=== PATIENT | male | born 1960 | race Caucasian/White ===

== ENCOUNTER 2017-06-30 08:47 | Emergency (ER) | payer MEDICARE, MEDICAID ==
[2017-06-30] MEDS ORDERED: Sodium Chloride 0.9% 1,000 ML IV ONE (09:26)
[2017-06-30 09:29] VITALS: BP 140/89
[2017-06-30 10:22] LABS: CHLORIDE,CL 104 mmol/L (98-110); SODIUM,NA 136 mmol/L (136-146)
--- NOTE | 2017-06-30 10:43 | EDM.PDOC ---
ED HPI GENERAL MEDICAL PROBLEM - General Chief Complaint: Abdominal Pain Stated Complaint: RIGHT SIDE ABDOMINAL PAIN Time Seen by Provider: 06/30/17 09:26 Source of Information: Reports: Patient History Limitations: Reports: No Limitations - History of Present Illness INITIAL COMMENTS - FREE TEXT/NARRATIVE: History of present illness: []Patient has had 2 weeks of intermittent right lower abdominal pain. He's worked up by Dr. Al for this in the past 2 weeks including an MRI evaluating his hernia with mesh which appeared normal. He denies any fevers, chills, vomiting or diarrhea and states he does have some nausea with the pain. Review of systems: As per history of present illness and below otherwise all systems reviewed and negative. Past medical history: As per history of present illness and as reviewed below otherwise noncontributory. Surgical history: As per history of present illness and as reviewed below otherwise noncontributory. Social history: No reported history of drug or alcohol abuse. Family history: As per history of present illness and as reviewed below otherwise noncontributory. Physical exam: General: Well developed, well nourished in NAD HEENT: Atraumatic, normocephalic, pupils reactive, negative for conjunctival pallor or scleral icterus, mucous membranes moist, throat clear, neck supple, nontender, trachea midline. Lungs: Clear to auscultation, breath sounds equal bilaterally, chest nontender. Heart: S1S2, regular, negative for clicks, rubs, or JVD. Abdomen: Soft, nondistended, tender right lower quadrant without rebound or guarding. Negative for masses or hepatosplenomegaly. Negative for costovertebral tenderness. Pelvis: Stable nontender. Genitourinary: Deferred. Rectal: Deferred. Extremities: Atraumatic, negative for cords or calf pain. Neurovascular unremarkable. Neuro: Awake, alert, oriented. Cranial nerves II through XII unremarkable. Cerebellum unremarkable. Motor and sensory unremarkable throughout. Exam nonfocal. Diagnostics: []Lab work which is normal Therapeutics: []IV hydrated with improvement Impression: []Abdominal pain NOS Plan: []Motrin for pain follow-up with primary care return if symptoms worsen Definitive disposition and diagnosis as appropriate pending reevaluation and review of above. 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 - Past Surgical History Cardiovascular Surgical History: Reports: None Other Musculoskeletal Surgeries/Procedures:: back surgery for 2 herniated discs Social & Family History - Family History Family Medical History: Noncontributory - Tobacco Use Smoking Status *Q: Former Smoker Used Tobacco, but Quit: Yes Month Tobacco Last Used: years ago - Caffeine Use Caffeine Use: Reports: Coffee Caffeine Use Comment: 2drinks/day - Recreational Drug Use Recreational Drug Use: No ED ROS GENERAL - Review of Systems Review Of Systems: See Below (See history of present illness) ED EXAM, GI/ABD - Physical Exam Exam: See Below (See history of present illness) Course - Vital Signs Last Recorded V/S: Last Vital Signs Temp 36.6 C 06/30/17 09:25 Pulse 88 06/30/17 09:25 Resp 19 06/30/17 09:25 BP 140/89 06/30/17 09:25 Pulse Ox 97 06/30/17 09:25 - Orders/Labs/Meds Labs: Laboratory Tests 06/30/17 06/30/17 06/30/17 Range/Units 09:35 09:35 09:40 WBC 8.85 (4.0-11.0) K/uL RBC 5.24 (4.50-5.90) M/uL Hgb 15.8 (13.0-17.0) g/dL Hct 44.6 (38.0-50.0) % MCV 85.1 (80.0-98.0) fL MCH 30.2 (27.0-32.0) pg MCHC 35.4 (31.0-37.0) g/dL RDW Std Deviation 40.3 (28.0-62.0) fl RDW Coeff of Robert 13 (11.0-15.0) % Plt Count 244 (150-400) K/uL MPV 9.70 (7.40-12.00) fL Neut % (Auto) 57.0 (48.0-80.0) % Lymph % (Auto) 29.8 (16.0-40.0) % Stark % (Auto) 10.2 (0.0-15.0) % Eos % (Auto) 2.3 (0.0-7.0) % Baso % (Auto) 0.7 (0.0-1.5) % Neut # (Auto) 5.1 (1.4-5.7) K/uL Lymph # (Auto) 2.6 H (0.6-2.4) K/uL Stark # (Auto) 0.9 H (0.0-0.8) K/uL Eos # (Auto) 0.2 (0.0-0.7) K/uL Baso # (Auto) 0.1 (0.0-0.1) K/uL Nucleated RBC % 0.0 /100WBC Nucleated RBCs # 0 K/uL Sodium 136 (136-146) mmol/L Potassium 4.1 (3.5-5.1) mmol/L Chloride 104 (98-110) mmol/L Carbon Dioxide 23 (21-31) mmol/L BUN 17 (6.0-23.0) mg/dL Creatinine 1.1 (0.6-1.5) mg/dL Est Cr Clr Drug Dosing 79.86 mL/min Estimated GFR (MDRD) > 60.0 ml/min Glucose 111 H (60-110) mg/dL Calcium 10.7 (8.8-10.8) mg/dL Total Bilirubin 0.7 (0.1-1.5) mg/dL AST 25 (5-40) IU/L ALT 40 (8-54) IU/L Alkaline Phosphatase 97 (40-150) Total Protein 7.5 (6.0-8.0) g/dL Albumin 4.6 (3.5-5.0) g/dL Globulin 2.9 (2.0-3.5) g/dL Albumin/Globulin Ratio 1.6 (1.3-2.8) Lipase 38 (7-80) U/L Urine Color YELLOW Urine Appearance CLEAR Urine pH 5.5 (5.0-8.0) Ur Specific [place] 1.020 (1.001-1.035) Urine Protein NEGATIVE (NEGATIVE) mg/dL Urine Glucose (UA) NEGATIVE (NEGATIVE) mg/dL Urine Ketones NEGATIVE (NEGATIVE) mg/dL Urine Occult Blood NEGATIVE (NEGATIVE) Urine Nitrite NEGATIVE (NEGATIVE) Urine Bilirubin NEGATIVE (NEGATIVE) Urine Urobilinogen 0.2 (<2.0) EU/dL Ur Leukocyte Esterase NEGATIVE (NEGATIVE) Urine RBC NONE SEEN (0-2/HPF) Urine WBC NONE SEEN (0-5/HPF) Ur Epithelial Cells RARE (NONE-FEW) Urine Bacteria RARE (NEGATIVE) Meds: Medications Discontinued Medications Generic Name Dose Route Start Last Admin Trade Name Bay PRN Reason Stop Dose Admin Sodium Chloride 1,000 mls @ 999 mls/hr 06/30/17 09:26 06/30/17 09:49 Normal Saline IV 06/30/17 10:26 999 mls/hr .Bolus ONE Administration Departure - Departure Time of Disposition: 10:41 Disposition: Home, Self-Care 01 Condition: Good Clinical Impression: Abdominal pain Qualifiers: Abdominal location: right lower quadrant Qualified Code(s): R10.31 - Right lower quadrant pain - Discharge Information Referrals: Jace Al DO [Primary Care Provider] - Additional Instructions: The following information is given to patients seen in the emergency department who are being discharged to home. This information is to outline your options for follow-up care. We provide all patients seen in our emergency department with a follow-up referral. The need for follow-up, as well as the timing and circumstances, are variable depending upon the specifics of your emergency department visit. If you don't have a primary care physician on staff, we will provide you with a referral. We always advise you to contact your personal physician following an emergency department visit to inform them of the circumstance of the visit and for follow-up with them and/or the need for any referrals to a consulting specialist. The emergency department will also refer you to a specialist when appropriate. This referral assures that you have the opportunity for follow-up care with a specialist. All of these measure are taken in an effort to provide you with optimal care, which includes your follow-up. Under all circumstances we always encourage you to contact your private physician who remains a resource for coordinating your care. When calling for follow-up care, please make the office aware that this follow-up is from your recent emergency room visit. If for any reason you are refused follow-up, please contact the [facility] Emergency Department at and asked to speak to the emergency department charge nurse. [facility] [address] [place] [id number]
== END 2017-06-30 10:55 | disposition home or self-care (01) ==
LOC: MW.ED 08:47
DX: R10.31 Right lower quadrant pain (principal); I10 Essential (primary) hypertension; Z87.891 Personal history of nicotine dependence; Z98.890 Other specified postprocedural states; Z87.442 Personal history of urinary calculi
CPT/HCPCS: 36415; 80053; 81001; 83690; 85025; 96360; 99284; J7040; 99283

== ENCOUNTER 2018-11-19 15:10 | Emergency (ER) | payer MEDICARE, MEDICAID ==
--- NOTE | 2018-11-19 15:43 | EDM.PDOC ---
ED HPI GENERAL MEDICAL PROBLEM - General Chief Complaint: Skin Complaint Stated Complaint: POSSIBLE SHINGLES Time Seen by Provider: 11/19/18 15:11 Source of Information: Reports: Patient History Limitations: Reports: No Limitations - History of Present Illness INITIAL COMMENTS - FREE TEXT/NARRATIVE: History of present illness: []Patient's had 2 days of painful rash on his left buttock going down the left posterior thigh. Denies any fevers, chills or any other rash. Review of systems: As per history of present illness and below otherwise all systems reviewed and negative. Past medical history: As per history of present illness and as reviewed below otherwise noncontributory. Surgical history: As per history of present illness and as reviewed below otherwise noncontributory. Social history: No reported history of drug or alcohol abuse. Family history: As per history of present illness and as reviewed below otherwise noncontributory. Physical exam: General: Well developed, well nourished in NAD HEENT: Atraumatic, normocephalic, pupils reactive, negative for conjunctival pallor or scleral icterus, mucous membranes moist, throat clear, neck supple, nontender, trachea midline. Lungs: Clear to auscultation, breath sounds equal bilaterally, chest nontender. Heart: S1S2, regular, negative for clicks, rubs, or JVD. Abdomen: NABS, Soft, nondistended, nontender. Negative for masses or hepatosplenomegaly. Negative for costovertebral tenderness. Pelvis: Stable nontender. Genitourinary: Deferred. Rectal: Deferred. Extremities: Atraumatic, negative for cords or calf pain. Neurovascular unremarkable. Neuro: Awake, alert, oriented. Cranial nerves II through XII unremarkable. Cerebellum unremarkable. Motor and sensory unremarkable throughout. Exam nonfocal. Skin:warm and dry, positive erythematous lesions pustular and varying sizes on left buttock down to left posterior thigh. Diagnostics: None Therapeutics: None ED Course: Unremarkable Impression: Prescriptions: Plan: Definitive disposition and diagnosis as appropriate pending reevaluation and review of above. Hip Pain Score (Numeric/FACES): 7 - Related Data Allergies Allergy/AdvReac Type Severity Reaction Status Date / Time No Known Allergies Allergy Verified 11/19/18 15:31 Home Meds: Home Meds Baclofen 1 - 2 tab PO TID 07/16/18 [History] Gabapentin [Neurontin] 600 mg PO TID 07/16/18 [History] Ketamine HCl [Ketamine Hydrochloride] 1 dose TOP ASDIRECTED PRN 07/16/18 [ History] Lidocaine/Prilocaine [Lidocaine-Prilocaine Cream] 1 dose TOP TID PRN 07/16/18 [ History] Lisinopril/Hydrochlorothiazide [Lisinopril-Hctz 20-12.5 mg Tab] 1 tab PO QAM 02/26 [History] Metoprolol Tartrate 50 mg PO BID 07/16/18 [History] Nortriptyline HCl [Pamelor] 50 mg PO BEDTIME 07/16/18 [History] Ondansetron [Ondansetron ODT] 4 mg PO Q8H PRN 07/16/18 [History] traMADol HCl [Tramadol HCl] 50 mg PO DAILY PRN 07/16/18 [History] Acyclovir [Zovirax] 800 mg PO 5XDAY #50 tab 11/19/18 [Rx] methylPREDNISolone [Medrol] 4 mg PO ASDIRECTED #1 dosepk 11/19/18 [Rx] traMADol HCl [Tramadol HCl] 50 mg PO Q6H PRN #20 tablet 11/19/18 [Rx] Past Medical History HEENT History: Reports: Other (See Below) Other HEENT History: wears glasses, has upper denture, has 2 "collapsed sinuses" Cardiovascular History: Reports: Hypertension Genitourinary History: Reports: BPH, Renal Calculus Other Genitourinary History: passed on it's own Musculoskeletal History: Reports: Arthritis, Back Pain, Chronic, Other (See Below) Other Musculoskeletal History: hx of dislocated ribs Neurological History: Reports: Headaches, Chronic, Migraines, Other (See Below) Other Neuro History: hx of dyslexia, has headaches from sinus pressure Endocrine/Metabolic History: Reports: Diabetes, Type II Other Endocrine/Metabolic History: borderline diabetic - Past Surgical History Head Surgeries/Procedures: Reports: None HEENT Surgical History: Reports: Tonsillectomy GI Surgical History: Reports: Hernia, Inguinal Neurological Surgical History: Reports: Lumbar Spine Musculoskeletal Surgical History: Reports: Other (See Below) Other Musculoskeletal Surgeries/Procedures:: bulging disc repair Social & Family History - Family History Family Medical History: Noncontributory - Tobacco Use Smoking Status *Q: Former Smoker Used Tobacco, but Quit: Yes Month/Year Tobacco Last Used: 1996 - Caffeine Use Caffeine Use: Reports: Coffee Caffeine Use Comment: 2drinks/day - Recreational Drug Use Recreational Drug Use: No ED ROS GENERAL - Review of Systems Review Of Systems: ROS reveals no pertinent complaints other than HPI. ED EXAM, SKIN/RASH Exam: See Below (See history of present illness was) Course - Vital Signs Last Recorded V/S: Last Vital Signs Temp 96.8 F 11/19/18 15:25 Pulse 78 11/19/18 15:25 Resp 18 11/19/18 15:25 BP 131/85 11/19/18 15:25 Pulse Ox 96 11/19/18 15:25 Departure - Departure Time of Disposition: 15:43 Disposition: Home, Self-Care 01 Condition: Good Clinical Impression: Shingles Qualifiers: Herpes zoster complications: without complications Qualified Code(s): B02.9 - Zoster without complications - Discharge Information *PRESCRIPTION DRUG MONITORING PROGRAM REVIEWED*: No *COPY OF PRESCRIPTION DRUG MONITORING REPORT IN PATIENT RANDOLPH: No Prescriptions: Acyclovir [Zovirax] 800 mg PO 5XDAY #50 tab methylPREDNISolone [Medrol] 4 mg PO ASDIRECTED #1 dosepk traMADol HCl [Tramadol HCl] 50 mg PO Q6H PRN #20 tablet PRN Reason: Pain Referrals: Nilay Leon MD [Primary Care Provider] - Forms: ED Department Discharge Additional Instructions: The following information is given to patients seen in the emergency department who are being discharged to home. This information is to outline your options for follow-up care. We provide all patients seen in our emergency department with a follow-up referral. The need for follow-up, as well as the timing and circumstances, are variable depending upon the specifics of your emergency department visit. If you don't have a primary care physician on staff, we will provide you with a referral. We always advise you to contact your personal physician following an emergency department visit to inform them of the circumstance of the visit and for follow-up with them and/or the need for any referrals to a consulting specialist. The emergency department will also refer you to a specialist when appropriate. This referral assures that you have the opportunity for follow-up care with a specialist. All of these measure are taken in an effort to provide you with optimal care, which includes your follow-up. Under all circumstances we always encourage you to contact your private physician who remains a resource for coordinating your care. When calling for follow-up care, please make the office aware that this follow-up is from your recent emergency room visit. If for any reason you are refused follow-up, please contact the [facility] Emergency Department at and asked to speak to the emergency department charge nurse. Meds as directed, follow up with primary care return if symptoms worsen or change. [facility] [address] [place] [id number]
[2018-11-19 16:03] VITALS: BP 133/80
== END 2018-11-19 15:59 | disposition home or self-care (01) ==
LOC: MW.ED 15:10
DX: B02.9 Zoster without complications (principal); I10 Essential (primary) hypertension; E11.9 Type 2 diabetes mellitus without complications; Z87.891 Personal history of nicotine dependence; Z79.899 Other long term (current) drug therapy
CPT/HCPCS: 99282

== ENCOUNTER 2024-01-11 09:05 | Day surgery (SDC) | payer MEDICARE, OTHER, MEDICAID ==
[2024-01-11] MEDS: Lactated Ringers 1,000 ML IV SCH (09:36)
[2024-01-11] MEDS ORDERED: Ondansetron 4 MG/2 ML SDV ONE (10:25)
[2024-01-11] MEDS ORDERED: Lidocaine 2% 5 ML SDV ONE (10:25)
[2024-01-11] MEDS ORDERED: Ketorolac 30 MG/ML SDV ONE (10:25)
[2024-01-11] MEDS ORDERED: Magnesium Sulfate (4.06 MEQ/ML) 5 GM/10 ML SDV ONE (10:42)
[2024-01-11] MEDS ORDERED: Glycopyrrolate 0.2 MG/ML SDV ONE (10:57)
[2024-01-11] MEDS ORDERED: Lactated Ringers 1,000 ML IV SCH (11:45)
[2024-01-11 12:04] VITALS: BP 85/50; PULSE 46
== END 2024-01-11 12:20 | disposition home or self-care (01) ==
LOC: MW.SDS 09:05
PROVIDERS: ATTEND Surgery
DX: K29.50 Unspecified chronic gastritis without bleeding (principal); B96.81 Helicobacter pylori [H. pylori] as the cause of diseases classified elsewhere; K62.5 Hemorrhage of anus and rectum; I10 Essential (primary) hypertension; E11.9 Type 2 diabetes mellitus without complications; Z79.899 Other long term (current) drug therapy
CPT/HCPCS: 43239; 45378; 88305; 88342; J1885; J2405; J3475; J3490; J7120; 00813

== ENCOUNTER 2025-07-26 10:03 | Emergency (ER) | payer MEDICARE, MEDICAID ==
[2025-07-26 10:20] LABS: BASOPHILS ABSOLUTE AUTO 0.10 K/uL (0.00-0.20); BASOPHILS PERCENT AUTO 0.9 % (0.0-1.0); EOSINOPHILS ABSOLUTE AUTO 0.68 K/uL (0.00-0.45); EOSINOPHILS PERCENT AUTO 6.1 % (0.0-6.0); IMMATURE GRAN ABSOLUTE AUTO 0.02 K/uL (0.00-0.05); IMMATURE GRAN PERCENT AUTO 0.2 % (0.0-0.4); LYMPHOCYTES ABSOLUTE AUTO 3.11 K/uL (1.00-4.80); LYMPHOCYTES PERCENT AUTO 28.1 % (24.0-44.0); MEAN PLATELET VOLUME 9.4 fL (9.4-12.4); MONOCYTES ABSOLUTE AUTO 1.02 K/uL (0.00-0.80); MONOCYTES PERCENT AUTO 9.2 % (0.0-8.0); NEUTROPHILS ABSOLUTE AUTO 6.15 K/uL (1.80-7.70); NEUTROPHILS PERCENT AUTO 55.5 % (41.0-71.0); NRBC ABSOLUTE 0.00 K/uL (0.00-0.02); NRBC PERCENT 0.0 /100WBC (0.0-0.2); PLATELET COUNT,PLT 243 K/uL (150-400); RED BLOOD CELL COUNT 4.94 M/uL (4.52-5.90); WHITE BLOOD CELL COUNT,WBC 11.08 K/uL (3.9-11.3)
[2025-07-26 10:29] LABS: D-DIMER QUANTITATIVE 0.2 mg/L FEU (0.00-0.50); INR 0.99 (0.86-1.11)
[2025-07-26 10:56] LABS: A/G RATIO 1.4 (0.9-1.6); ALANINE AMINOTRANSFERASE,ALT 35.0 IU/L (14-63); ASPARTATE AMNIOTRANSFERASE,AST 20.0 IU/L (15-37); BILIRUBIN TOTAL 0.4 mg/dL (0.2-1.0); BLOOD UREA NITROGEN,BUN 24.0 mg/dL (7.0-18.0); CARBON DIOXIDE,CO2 28.4 mmol/L (21.0-32.0); CHLORIDE,CL 103.0 mmol/L (98-107); CREATININE 1.0 mg/dL (0.8-1.3); EST CRCL DRUG DOSING (CG) 79.48 mL/min; GLUCOSE RANDOM 147.0 mg/dL (74-106); POTASSIUM,K 4.4 mmol/L (3.5-5.1); PRO B-TYPE NATRIUR PEPT,BNPPRO 21.0 pg/mL (0-125); PROTEIN TOTAL,TP 7.0 g/dL (6.4-8.2); SODIUM,NA 141.0 mmol/L (136-148)
[2025-07-26 10:58] LABS: ESTIMATED GFR 84.0 mL/min (>60)
[2025-07-26] MEDS: Sodium Chloride 0.9% 10 ML Syringe FLUSH PRN (11:45)
[2025-07-26] MEDS: Sodium Chloride 0.9% 2.5 ML Syringe FLUSH PRN (11:45)
[2025-07-26] MEDS: Ondansetron 4 MG/2 ML SDV IVPUSH ONE (11:45)
[2025-07-26] MEDS: Iopamidol 755 MG/ML 500 ML Multipack Bottle IVPUSH STA (12:03)
[2025-07-26] MEDS: Alum Hydrox/Mag Hydrox/Simeth 15 ML, Lidocaine 2% 5 ML PO ONE (13:11)
[2025-07-26 13:52] VITALS: BP 109/79; PULSE 55
== END 2025-07-26 13:52 | disposition home or self-care (01) ==
LOC: MW.ED 10:03
DX: R07.2 Precordial pain (principal); R10.31 Right lower quadrant pain; I10 Essential (primary) hypertension; Z75.3 Unavailability and inaccessibility of health-care facilities; Z79.899 Other long term (current) drug therapy
CPT/HCPCS: 36415; 71045; 74177; 80053; 83690; 83735; 83880; 84484; 85025; 85379; 85610; 87428; 93005; 96361; 96374; 96375; 99285; A9270; J2270; J2405; J7030; Q9967; 99284